=== PATIENT | male | born 1965 | race African-American/Black ===

== ENCOUNTER 2019-06-09 08:08 | Emergency (ER) | payer MEDICARE, MEDICAID ==
[2019-06-09 08:22] VITALS: BP 129/67
--- NOTE | 2019-06-09 08:42 | UC ---
Respiratory Complaint HPI - HPI Summary HPI Summary: Mr. Castaneda started with sneezing and sniffling and coughing yesterday. He feels a bit better today but still has some cough. - History of Current Complaint Chief Complaint: UCRespiratory Stated Complaint: ALLERGY/SORE THROAT Time Seen by Provider: 06/09/19 08:35 Hx Obtained From: Patient Onset/Duration: Sudden Onset Timing: Constant Severity Initially: Moderate Severity Currently: Moderate Pain Intensity: 7 Character: Cough: Nonproductive Aggravating Factors: Deep Breaths - Allergies/Home Medications Allergies/Adverse Reactions: Allergies Allergy/AdvReac Type Severity Reaction Status Date / Time No Known Allergies Allergy Verified 06/09/19 08:22 PMH/Surg Hx/FS Hx/Imm Hx Previously Healthy: Yes - Surgical History Surgical History: None - Social History Alcohol Use: None Substance Use Type: None Smoking Status (MU): Never Smoked Tobacco Review of Systems All Other Systems Reviewed And Are Negative: Yes Skin: Positive: Negative Eyes: Positive: Negative ENT: Positive: Negative Respiratory: Positive: Cough Physical Exam - Summary Physical Exam Summary: He is nontoxic in appearance with stable vitals. Triage Information Reviewed: Yes Appearance: Well-Appearing Vital Signs: Initial Vital Signs Temp 97.7 F 06/09/19 08:19 Pulse 72 06/09/19 08:19 Resp 16 06/09/19 08:19 BP 129/67 06/09/19 08:19 Pulse Ox 100 06/09/19 08:19 Vital Signs Reviewed: Yes Eye Exam: Normal ENT Exam: Normal Dental Exam: Normal Neck exam: Normal Respiratory: Positive: Chest non-tender, Lungs clear, Normal breath sounds, No respiratory distress, No accessory muscle use Cardiovascular Exam: Normal Respiratory Course/Dx - Course Course Of Treatment: This is likely allergic in nature. I don't see any evidence for an infection. I 'm going to treat him symptomatically. - Differential Dx/Diagnosis Provider Diagnosis: Allergy Discharge - Sign-Out/Discharge Documenting (check all that apply): Patient Departure All imaging exams completed and their final reports reviewed: No Studies - Discharge Plan Condition: Stable Disposition: HOME Patient Education Materials: Allergies (ED) Referrals: Ten Alvarez MD [Primary Care Provider] - - Billing Disposition and Condition Condition: STABLE Disposition: Home
== END 2019-06-09 09:00 | disposition home or self-care (01) ==
LOC: UCEAST 08:08
DX: T78.40XA Allergy, unspecified, initial encounter (principal); X58.XXXA Exposure to other specified factors, initial encounter
CPT/HCPCS: 99202; G0463